=== PATIENT | female | born 1980 | race Caucasian/White ===

== ENCOUNTER 2020-11-29 13:56 | Emergency (ER) | payer MEDICAID, SELFPAY ==
[2020-11-29 14:16] VITALS: BP 207/130; PULSE 93; RESP 18; TEMP 36.1; O2SAT 97; BMI 37.2
--- NOTE | 2020-11-29 14:50 | ECG_ITS ---
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: : 1980 Requested By: Roger Balbuena Order Number: [id number] Amadeo MD: CARLOS LEVY Measurements Intervals [place] Rate: 88 P: 4 WI: 164 QRS: -7 QRSD: 102 T: 102 QT: 373 QTc: 454 Interpretive Statements SINUS RHYTHM INCOMPLETE RIGHT BUNDLE BRANCH BLOCK [90+ ms QRS DURATION, TERMINAL R IN V1/V2, 40+ ms S IN I/aVL/V4/V5/V6] ST DEVIATION AND MODERATE T-WAVE ABNORMALITY, CONSIDER LATERAL ISCHEMIA [-0.1+ mV T WAVE IN I/aVL/V5/V6] Compared to ECG 04/16/2017 00:15:57 T-wave abnormality now present Possible ischemia now present Sinus tachycardia no longer present Short WI interval no longer present Electronically Signed On 11-29-2020 19:23:57 CDT by CARLOS LEVY [email or web address]
--- NOTE | 2020-11-29 14:51 | XR_ITS ---
WS: [id number] AP and lateral chest, 11/29/2020 Clinical Data: lung pain Comparison: Portable chest, 04/16/2017. Findings: No nodules, masses or effusions are seen. There is a patchy opacity over the surface of the right diaphragm. This may represent atelectasis, effusion and/or pneumonia. Heart is slightly enlarg ed. The left lung is clear. No pneumothorax is seen. The pulmonary vascularity is not remarkable. XR/XR chest 2V* [id number] Impression: 1. Patchy atelectasis and/or pneumonia over surface of the right diaphragm. 2. Cardiomegaly.
[2020-11-29 14:52] VITALS: BP 159/92; PULSE 91; RESP 22; O2SAT 95
--- NOTE | 2020-11-29 14:55 | ED_ITS ---
HPI - SOB/Dyspnea General: Chief Complaint: Shortness of Breath/Dyspnea Stated Complaint: sob Time Seen by Provider: 11/29/20 14:43 History of Present Illness: HPI Narrative: 40-year-old female presents with shortness of breath. Patient reports that shortness of breath started yesterday morning. She feels like she has concrete in her lungs she complains of sharp pain with deep breath. She denies any cough, fever, chills, nausea, vomiting or diaphoresis. She has no chest pain outside of when she takes a deep breath. The pain is on the right greater than the left. Associated symptoms: Deny abdominal pain, fever(s), nausea, palpitations or vomiting Review of Systems Const: Denies: fever(s) or chills Eyes: Denies: change in vision ENMT: Denies: throat pain Card: Denies: palpitations, irregular heart rhythm or edema Resp: Reports: dyspnea; Denies: productive cough, non-productive cough or wheezing GI: Denies: abdominal pain, nausea or vomiting : Denies: flank pain Musc: Denies: neck pain Skin/Breast: Denies: rash Neuro: Denies: headache(s) [facility] Female Reproductive History: Date of last menstrual period: 11/23/20 Physical Exam Const: COMMON NORMALS: no acute distress and patient oriented x3 GENERAL APPEARANCE: not in distress HENMT: COMMON NORMALS: normocephalic HEAD & SCALP: normocephalic Resp: COMMON NORMALS: normal respiratory effort and clear to auscultation bilaterally AUSCULTATION: clear to auscultation bilaterally and no wheezes Cardio: COMMON NORMALS: regular rate, regular rhythm and Peripheral pulses 2+ throughout RATE: regular rate RHYTHM: regular rhythm PERIPHERAL PULSES: Peripheral pulses 2+ throughout GI: COMMON NORMALS: non-tender INSPECTION: Yes normal to inspection and Yes central obesity PALPATION: Yes Soft to palpation and No Tenderness to palpation present (GI) : COMMON NORMALS: Yes no CVA tenderness BLADDER/KIDNEY EXAM: Yes no CVA tenderness Back/Pelvis: COMMON NORMALS: no CVA tenderness Extremity: COMMON NORMALS: normal to inspection and full ROM Neuro: COMMON NORMALS: patient oriented x3 and no focal motor deficits Psych: COMMON NORMALS: mental status grossly normal and speech normal SPEECH: Yes normal speech Skin: COMMON NORMALS: no rashes or lesions noted GENERAL SKIN EXAM: no rashes or lesions noted Course Vital Signs: Vital signs: Vital Signs Temperature 96.9 F L 11/29/20 14:16 Pulse Rate 90 11/29/20 15:42 Respiratory Rate 21 H 11/29/20 15:42 Blood Pressure 205/110 11/29/20 15:42 Pulse Oximetry 95 11/29/20 15:42 MDM - SOB/Dyspnea MDM Narrative: Medical decision making narrative: Patient with right lower lobe pneumonia. Patient with no PE on CTA. Patient will be prescribed azithromycin for atypical pneumonia. Patient stable and discharged home Lab Data: Attestation: I reviewed the patient's lab results. Labs: Lab Results 11/29/20 11/29/20 11/29/20 Range/Units 15:44 15:44 15:44 WBC 14.3 H (4.0-10.0) 10^3/ uL RBC 4.95 (4.1-5.3) 10^6/u L Hgb 14.0 (11.5-15.3) g/dL Hct 42.7 (37.0-47.0) % MCV 86.3 (81-99) fL MCH 28.3 (28.0-34.0) pg MCHC 32.8 (30.0-36.0) g/dL RDW 14.8 (12.1-15.1) % Plt Count 304 (130-400) 10^3/c mm MPV 9.2 (7.4-10.4) fL Neut % (Auto) 74.8 % Lymph % (Auto) 15.5 % [place] % (Auto) 7.0 % Eos % (Auto) 2.2 % Baso % (Auto) 0.2 % Neut # (Auto) 10.69 H (1.8-7.7) 10^3/u L Lymph # (Auto) 2.2 (0.8-4.8) 10^3/u L [place] # (Auto) 1.0 H (0.2-0.9) 10^3/u L Eos # (Auto) 0.3 (0.0-0.8) 10^3/u L Baso # (Auto) 0.0 (0.0-0.1) 10^3/u L Nucleated RBC % (a uto) 0 % Nucleated RBCs # 0.0 /100WBC D-Dimer (0-0.59) ug/mIFE U Sodium 137 (136-145) mmol/L Potassium 3.3 L (3.5-5.1) mmol/L Chloride 100 (98-107) mmol/L Carbon Dioxide 28 (22-29) mmol/L Anion Gap 12.3 (5-19) BUN 9 (6-20) mg/dL Creatinine 0.5 (0.5-0.9) mg/dL GFR Calculation 138.1 H (90-130) mL/min Glucose 90 (65-115) mg/dL Calculated Osmolal ity 282 L (285-295) mOsm/k g Calcium 8.5 (8.5-10.5) mg/dL Magnesium 2.0 (1.7-2.3) mg/dL Total Bilirubin 0.8 (0.15-1.2) mg/dL AST 18 (0-32) U/L ALT 24 (0-33) U/L Alkaline Phosphata se 92 (35-105) IU/L Troponin T Gen 5 n g/L 18 H (0-10) ng/L C-Reactive Protein 106.6 H (0.0-4.9) mg/L Total Protein 6.8 (6.6-8.7) g/dL Albumin 3.9 (3.5-5.2) g/dL Globulin 2.9 (1.3-4.6) g/dL 11/29/20 Range/Units 15:44 WBC (4.0-10.0) 10^3/ uL RBC (4.1-5.3) 10^6/u L Hgb (11.5-15.3) g/dL Hct (37.0-47.0) % MCV (81-99) fL MCH (28.0-34.0) pg MCHC (30.0-36.0) g/dL RDW (12.1-15.1) % Plt Count (130-400) 10^3/c mm MPV (7.4-10.4) fL Neut % (Auto) % Lymph % (Auto) % [place] % (Auto) % Eos % (Auto) % Baso % (Auto) % Neut # (Auto) (1.8-7.7) 10^3/u L Lymph # (Auto) (0.8-4.8) 10^3/u L [place] # (Auto) (0.2-0.9) 10^3/u L Eos # (Auto) (0.0-0.8) 10^3/u L Baso # (Auto) (0.0-0.1) 10^3/u L Nucleated RBC % (a uto) % Nucleated RBCs # /100WBC D-Dimer 2.65 H (0-0.59) ug/mIFE U Sodium (136-145) mmol/L Potassium (3.5-5.1) mmol/L Chloride (98-107) mmol/L Carbon Dioxide (22-29) mmol/L Anion Gap (5-19) BUN (6-20) mg/dL Creatinine (0.5-0.9) mg/dL GFR Calculation (90-130) mL/min Glucose (65-115) mg/dL Calculated Osmolal ity (285-295) mOsm/k g Calcium (8.5-10.5) mg/dL Magnesium (1.7-2.3) mg/dL Total Bilirubin (0.15-1.2) mg/dL AST (0-32) U/L ALT (0-33) U/L Alkaline Phosphata se (35-105) IU/L Troponin T Gen 5 n g/L (0-10) ng/L C-Reactive Protein (0.0-4.9) mg/L Total Protein (6.6-8.7) g/dL Albumin (3.5-5.2) g/dL Globulin (1.3-4.6) g/dL Imaging Data^: CXR: Attestation: I personally reviewed and interpreted this imaging study as follows: My impression: RLL pneumonia Radiologist's impression: Findings: No nodules, masses or effusions are seen. There is a patchy opacity over the surface of the right diaphragm. This may represent atelectasis, effusion and/or pneumonia. Heart is slightly enlarged. The left lung is clear. No pneumothorax is seen. The pulmonary vascularity is not remarkable. XR/XR chest 2V* [id number] Impression: 1. Patchy atelectasis and/or pneumonia over surface of the right diaphragm. 2. Cardiomegaly CTA Chest: Radiologist's impression: CT/CT angio chest PE protcl [id number] IMPRESSION: 1. No evidence for pulmonary embolus. 2. Mild aneurysmal dilatation of the ascending thoracic aorta. No dissection. 3. Discoid atelectasis and/or scarring in both lung bases. Superimposed mild pneumonia or aspiration in the right lower lobe is not excluded. 4. Small simple right pleural effusion Discharge Plan Discharge Prescriptions: No Action Aleve 220 mg Tablet 220 mg PO PRN RF: 0 ibuprofen 200 mg Tablet 200 mg PO PRN RF: 0 Coding Level of Care Code ED Software Engineer Mobile for Chg Fwd Exam Comprehensive
[2020-11-29 15:42] VITALS: BP 205/110; PULSE 90; RESP 21; O2SAT 95
[2020-11-29 15:54] LABS: Basophils % 0.2 %; Eosinophils # 0.3 10^3/uL (0.0-0.8); Eosinophils % 2.2 %; Hematocrit 42.7 % (37.0-47.0); Lymphocytes # 2.2 10^3/uL (0.8-4.8); Lymphocytes % 15.5 %; Mean Corpuscular HGB Conc 32.8 g/dL (30.0-36.0); Mean Corpuscular Hemoglobin 28.3 pg (28.0-34.0); Mean Corpuscular Volume 86.3 fL (81-99); Mean Platelet Volume 9.2 fL (7.4-10.4); Neutrophils # 10.69 10^3/uL (1.8-7.7); Neutrophils % 74.8 %; Nucleated Red Blood Cells % 0 %; Platelet Count 304 10^3/cmm (130-400); Red Blood Count 4.95 10^6/uL (4.1-5.3); Red Cell Distribution Width 14.8 % (12.1-15.1); White Blood Count 14.3 10^3/uL (4.0-10.0)
--- NOTE | 2020-11-29 16:03 | PC.PHAR ---
PT STATES SHE TAKES CARE OF HER OWN MEDICATIONS-PT STATES SHE ONLY TAKES OTC MEDS PRN-PT STATES SHE USE TO TAKE XANAX AND BP MEDS BUT HASNT TAKEN THEM FOR OVER 6 YEARS-EXT MED HISTORY DOESNT SHOW ANYTHING FILLED SINCE 09/05/20 FOR CLINDAMYCIN AND NAPROXEN-EXT MED HISTORY SHOWS A PROAIR INHALER FILLED ON 06/20/20 PT STATES SHE DOESNT HAVE IT ANY LONGER
[2020-11-29 16:17] LABS: Alanine Aminotransferase 24 U/L (0-33); Albumin Level 3.9 g/dL (3.5-5.2); Alkaline Phosphatase 92 IU/L (35-105); Anion Gap 12.3 (5-19); Aspartate Amino Transferase 18 U/L (0-32); Blood Urea Nitrogen 9 mg/dL (6-20); C Reactive Protein 106.6 mg/L (0.0-4.9); Calcium 8.5 mg/dL (8.5-10.5); Carbon Dioxide 28 mmol/L (22-29); Chloride 100 mmol/L (98-107); Globulin 2.9 g/dL (1.3-4.6); Glomerular Filtration Rate 138.1 mL/min (90-130); Glucose 90 mg/dL (65-115); Osmolality Calculated 282 mOsm/kg (285-295); Potassium 3.3 mmol/L (3.5-5.1); Sodium 137 mmol/L (136-145); Total Bilirubin 0.8 mg/dL (0.15-1.2); Total Protein 6.8 g/dL (6.6-8.7); Troponin T (5th) Once 18 ng/L (0-10)
[2020-11-29 16:20] LABS: D Dimer 2.65 ug/mIFEU (0-0.59)
--- NOTE | 2020-11-29 16:32 | CTR_ITS ---
PROCEDURE INFORMATION: Exam: CTA Chest With Contrast Exam date and time: 11/29/2020 4:42 PM Age: 40 years old Clinical indication: Shortness of breath; Patient HX: Back pain x yesterday, SOB; Additional info: SOB, elevated d dimer TECHNIQUE: Imaging protocol: Computed tomographic angiography of the chest with contrast. 3D rendering (Not supervised by radiologist): MIP and/or 3D reconstructed images were created by the technologist. Radiation optimization: All CT scans at this facility use at least one of these dose optimization techniques: automated exposure control; mA and/or kV adjustment per patient size (includes targeted exams where dose is matched to clinical indication); or iterative reconstruction. Contrast material: OMNI 350; Contrast volume: 95 ml; Contrast route: INTRAVENOUS (IV); COMPARISON: CR XR chest 2V* [id number] 11/29/2020 3:19 PM RADIATION DOSE METRICS: Total DLP (mGy-cm): 2672.29 FINDINGS: Pulmonary arteries: Normal. No pulmonary emboli. Aorta: Mild aneurysmal dilatation of the ascending thoracic aorta measuring 4.1 cm. No dissection. Lungs: Bandlike discoid atelectasis or scarring in both lung bases, right greater than left. Superimposed mild patchy ground-glass opacities in the right lower lobe. Pleural spaces: Small simple right pleural effusion. Heart: Unremarkable. No cardiomegaly. No pericardial effusion. Lymph nodes: Unremarkable. No enlarged lymph nodes. Gallbladder and bile ducts: Cholecystectomy. The bile ducts are normal. Bones/joints: Unremarkable. No acute fracture. Soft tissues: Unremarkable. CT/CT angio chest PE protcl [id number] IMPRESSION: 1. No evidence for pulmonary embolus. 2. Mild aneurysmal dilatation of the ascending thoracic aorta. No dissection. 3. Discoid atelectasis and/or scarring in both lung bases. Superimposed mild pneumonia or aspiration in the right lower lobe is not excluded. 4. Small simple right pleural effusion. Radiation Dose CTDIVOL = (mGy): DLP = 2672.29 (mGy-cm)
[2020-11-29] MEDS: iohexol 350 mg/mL 100 mL Btl IV (17:03)
[2020-11-29 17:28] VITALS: BP 219/129; PULSE 89; RESP 20; O2SAT 94
[2020-11-29] MEDS: ketorolac 30 mg/mL INJ IVP (17:34)
--- NOTE | 2020-11-29 17:35 | PC.NURSE ---
Pt was given ice water per doctor approval.
[2020-11-29] MEDS: HYDROcodone-acetaminophen 5-325 mg Tablet 1 TAB PO (17:51)
[2020-11-29] MEDS: ondansetron 2 mg/ML SDV 2 mL 4 MG IVP (17:51)
[2020-11-29 17:55] VITALS: BP 211/119; PULSE 96; RESP 18; O2SAT 98
[2020-11-29] MEDS: fentaNYL 50 mcg/mL INJ 2mL XX (18:09)
[2020-11-29 18:30] VITALS: BP 189/101; PULSE 92; RESP 20; O2SAT 93
== END 2020-11-29 18:35 | disposition home or self-care (01) ==
PROVIDERS: Emergency Provider Student in an Organized Health Care Education/Training Program; PCP Family Medicine
DX: R06.02 Shortness of breath (principal)
CPT/HCPCS: 71046; 71275; 80053; 83735; 84484; 85025; 85378; 86140; 93005; 96372; 96374; 96375; 99284; J1885; J2405; J3010; Q9967

== ENCOUNTER 2022-09-02 19:15 | Emergency (ER) | payer MEDICAID, SELFPAY ==
[2022-09-02 19:35] VITALS: BP 227/114; PULSE 84; RESP 18; TEMP 36.7; O2SAT 98
[2022-09-02] MEDS: tetracaine 0.5% Op Soln 4 mL Btl 1 DROP EYE-LEFT (21:04)
--- NOTE | 2022-09-02 21:24 | CTR_ITS ---
PROCEDURE INFORMATION: Exam: CT Orbits With Contrast Exam date and time: 09/02/2022 10:02 PM Age: 41 years old Clinical indication: Patient HX: Swelling to left orbit with pain. No known injury. ; Additional info: Acute left orbital swelling, conjunctival swelling, per Dr ortega with optho TECHNIQUE: Imaging protocol: Computed tomography of the orbits with contrast. Radiation optimization: All CT scans at this facility use at least one of these dose optimization techniques: automated exposure control; mA and/or kV adjustment per patient size (includes targeted exams where dose is matched to clinical indication); or iterative reconstruction. Contrast material: OMNI 350; Contrast volume: 100 ml; Contrast route: INTRAVENOUS (IV); COMPARISON: No relevant prior studies available. RADIATION DOSE METRICS: Total DLP (mGy-cm): 325.58 FINDINGS: Paranasal sinuses: Near complete opacification of the partially imaged left maxillary sinus. Minimal mucosal thickening of the partially imaged right maxillary sinus, sphenoid sinuses, and ethmoid air cells. The right frontal sinus is aplastic. The left frontal sinus is hypoplastic and unopacified. Orbital cavities: Mild left preseptal periorbital soft tissue swelling. There appears to be a low attenuating crescent with enhancing rim at the anterior margin of the globe (series 4, image 15 and series 8 image 25). Hyperenhancement of a mildly enlarged left lacrimal gland. The right orbit and right facial soft tissues are unremarkable in appearance. Bones/joints: No acute fracture. Soft tissues: See orbital cavities findings. CT/CT orbit BI w con [id number] IMPRESSION: 1. Mild left periorbital soft tissue swelling compatible with preseptal cellulitis. There appears to be a low attenuating crescent with enhancing rim at the anterior margin of the globe suggestive of chemosis vs. small abscess. Direct visualization is suggested for further evaluation. 2. Hyperenhancement of a mildly enlarged left lacrimal gland suggestive of dacryoadenitis, possibly secondary to the aforementioned findings. Correlate and follow-up as clinically indicated. 3. Near complete opacification of the left maxillary sinus.
[2022-09-02 21:35] LABS: Basophils # 0.1 10^3/uL (0.0-0.1); Basophils % 0.5 %; Eosinophils # 0.6 10^3/uL (0.0-0.8); Eosinophils % 4.3 %; Hematocrit 43.5 % (37.0-47.0); Hemoglobin 13.6 g/dL (11.5-15.3); Lymphocytes # 2.8 10^3/uL (0.8-4.8); Lymphocytes % 20.9 %; Mean Corpuscular HGB Conc 31.3 g/dL (30.0-36.0); Mean Corpuscular Volume 86.5 fl (81-99); Monocytes # 0.7 10^3/uL (0.2-0.9); Monocytes % 4.9 %; Neutrophils # 9.11 10^3/uL (1.8-7.7); Neutrophils % 69.1 %; Nucleated Red Blood Cells % 0 %; Platelet Count 370 10^3/cmm (130-400); Red Blood Count 5.03 10^6/uL (4.1-5.3); Red Cell Distribution Width 14.8 % (12.1-15.1); White Blood Count 13.2 10^3/uL (4.0-10.0)
[2022-09-02] MEDS: iohexol 350 mg/mL 500 mL Btl (per mL) IV (22:04)
[2022-09-02 22:09] LABS: Alanine Aminotransferase 21 U/L (0-33); Albumin Level 4.1 g/dL (3.5-5.2); Alkaline Phosphatase 95 U/L (35-105); Anion Gap 13.5 (5-19); Aspartate Amino Transferase 20 U/L (0-32); Blood Urea Nitrogen 12 mg/dL (6-20); Calcium 8.7 mg/dL (8.5-10.5); Carbon Dioxide 28 mmol/L (22-29); Chloride 100 mmol/L (98-107); Globulin 3.1 g/dL (1.3-4.6); Glomerular Filtration Rate 111.3 mL/min (90-130); Glucose 95 mg/dL (65-115); Osmolality Calculated 286 mOsm/kg (285-295); Potassium 3.5 mmol/L (3.5-5.1); Sodium 138 mmol/L (136-145); Total Bilirubin 0.5 mg/dL (0.15-1.2); Total Protein 7.2 g/dL (6.6-8.7)
[2022-09-02] MEDS: fentaNYL 50 mcg/mL INJ 2mL 25 MCG IVP (22:44)
[2022-09-02 22:51] VITALS: BP 233/120; PULSE 84; RESP 20; O2SAT 95
[2022-09-02 23:00] VITALS: BP 237/127; PULSE 79; O2SAT 95
[2022-09-02] MEDS: cefTRIAXone 1,000 MG in sodium chloride 0.9% (plus) 50 ML 100 MG IV (23:33)
[2022-09-03] MEDS: HYDROcodone-acetaminophen 5-325 mg Tablet 1 TAB PO (00:21)
[2022-09-03] MEDS: metoprolol succinate ER (24 HR) 50 mg Tablet PO (00:31)
--- NOTE | 2022-09-03 00:51 | PC.NURSE ---
Pt's blood pressure remained in the 200's over 120's after being given po Metoprolol. Pt stated her blood pressure is chronically high and she does not do pain well. Per MD she could go home.
--- NOTE | 2022-09-03 01:33 | ED_ITS ---
HPI - Eye Problem General: Chief complaint: Eye Problems Stated complaint: Left eye pain Time Seen by Provider: 09/02/22 19:33 Source: patient Mode of arrival: ambulatory Limitations: no limitations History of Present Illness: Patient presents to the emergency department today for evaluation treatment of left eye pain and swelling. Patient states that early this morning she felt like she had something in her eye and admits to rubbing it. She has continued to rub it and it has continued to swell and have increased pain. Patient originally went to urgent care where they diagnosed her with a bacterial conjunctivitis and was prescribed antibiotic eyedrops. However, patient states she got significantly worse with inability to open her left eye, severe worsening of pain, and significant tearing and presents here to the ER. Review of Systems General: Reports: 10 or more systems reviewed and unremarkable except in HPI and below Eyes: Reports: blurry vision, photophobia, eye discomfort, eye discharge, eye redness, increased production of tears and other (Swelling) [facility] Female Reproductive History: Date of last menstrual period: 11/23/20 Physical Exam Const: COMMON NORMALS: patient oriented x3 and alert; apparent distress HENMT: COMMON NORMALS: normocephalic, atraumatic, hearing grossly normal bilaterally and moist oral mucous membranes HEAD & SCALP: normocephalic and atraumatic Eye: OTHER: Patient's right eye is otherwise unremarkable. Patient's left eye is significantly swollen to the upper lid and upper orbit. There is some mild erythema present. Upper eyelid overlies the lower lid and with separation reveals significant swelling of the conjunctive a with only a small amount of the cornea visible. Patient is extremely photophobic on her examination. Patient is actively tearing. Neck/C-Spine: COMMON NORMALS: no JVD Lymph: LYMPHATIC: no lymphadenopathy noted Resp: COMMON NORMALS: normal respiratory effort, No retractions and No use of accessory muscles Cardio: COMMON NORMALS: no JVD, regular rate and regular rhythm RATE: regular rate RHYTHM: regular rhythm GI: COMMON NORMALS: Normal to inspection, nondistended, normoactive bowel sounds present : COMMON NORMALS: Yes no CVA tenderness BLADDER/KIDNEY EXAM: Yes no CVA tenderness Back/Pelvis: COMMON NORMALS: no CVA tenderness and thoraco-lumbar ROM normal Extremity: COMMON NORMALS: normal to inspection, full ROM and capillary refill normal Neuro: COMMON NORMALS: patient oriented x3 SENSORIUM/ORIENTATION: Yes alert Psych: COMMON NORMALS: mental status grossly normal, cooperative, normal affect and activity/motor behavior normal Course Vital Signs: Vital signs: Vital Signs Temperature 98.0 F 09/02/22 19:35 Pulse Rate 79 09/02/22 23:00 Respiratory Rate 20 H 09/02/22 22:51 Blood Pressure 237/127 09/02/22 23:00 Pulse Oximetry 95 09/02/22 23:00 Oxygen Delivery Me thod 09/02/22 23:00 MDM - Eye Problem Medical Decision Making Patient presents to the ER today with significant left orbital swelling, redness, and conjunctival swelling. Originally, Navarro lamp was going to be attempted to look for corneal abrasion however, the significant swelling of the patient's eye and globe prevented a full evaluation. I did call and speak with ophthalmology-Dr. Finley who indicated to emergent conditions for which we should evaluate today. He wanted to know if the patient was at risk for gonorrhea of the eye and, wanted to CT scan performed to look for orbital cellulitis. When discussing with patient, she admits it is possible she could have come into contact with bodily fluids during sex. We obtained a swab of the mucous membranes of the left eye and, after speaking the lab, obtained a miscellaneous lab 480 which is a send out for GC. We went ahead and initiated treatment for suspicion of a positive finding. Patient has an anaphylaxis allergy to penicillins however, she indicates she has tolerated both Omnicef and Rocephin in the past without difficulty. Patient received 1 g of Rocephin here in the ER. Josy hernandez called and spoke with me specifically regarding the patient's findings on her CT examination. He indicates that it does appear to be a preseptal cellulitis of the eye but there is noted to be significant swelling of the conjunctive a and acute left-sided sinusitis. Up-to-date indicated that the recommended second line for penicillin allergic patients with preseptal cellulitis is Omnicef. Given patient received Rocephin today, can start her Omnicef for [place] in the morning. Dr. Finley also indicated he wanted the patient to come in on a walk-in basis first thing in the morning to be seen and evaluated in his clinic. Patient was treated for pain here in the emergency department and can follow-up with ophthalmology for continued management of her condition first thing in the morning or, should return for any acute worsening. Patient had elevated blood pressure readings consistently during her time here. I did discuss with patient these findings and she does admit she has elevated blood pressure readings for which she does not treat. Patient is in quite a bit of pain here which could account for an acute elevation however, she has significantly elevated blood pressures without ability to determine whether or not headache or change in vision is related to her current condition or her blood pressure readings. After discussing with Dr. Townsend, he recommended starting metoprolol and having her follow-up with her primary care doctor for further management. Differential Diagnosis Likely corneal abrasion, conjunctivitis, acute iritis, hyphema, periorbital cellulitis, subconjunctival hemorrhage and corneal ulcer Lab Data 09/02/22:23 09/02/22 21: Radiology Impressions Orbit CT 09/02/22 21:24 IMPRESSION: 1. Mild left periorbital soft tissue swelling compatible with preseptal cellulitis. There appears to be a low attenuating crescent with enhancing rim at the anterior margin of the globe suggestive of chemosis vs. small abscess. Direct visualization is suggested for further evaluation. 2. Hyperenhancement of a mildly enlarged left lacrimal gland suggestive of dacryoadenitis, possibly secondary to the aforementioned findings. Correlate and follow-up as clinically indicated. 3. Near complete opacification of the left maxillary sinus. ADDENDUM: 09/02/22 [id number] The findings were verbally communicated via telephone conference with Lety Anderson PA-C at 11:03 PM PUBLIC RELATIONS DIRECTOR on 09/02/2022. The findings were acknowledged and understood. Laboratory Results WBC 13.2 10^3/uL (4.0-10.0) H 09/02/22: RBC 5.03 10^6/uL (4.1-5.3) 09/02/22: Hgb 13.6 g/dL (11.5-15.3) 09/02/22: Hct 43.5 % (37.0-47.0) 09/02/22: MCV 86.5 fl (81-99) 09/02/22: MCH 27.0 pg (28.0-34.0) L 09/02/22: MCHC 31.3 g/dL (30.0-36.0) 09/02/22 21: RDW 14.8 % (12.1-15.1) 09/02/22: Plt Count 370 10^3/cmm (130-400) 09/02/22 21: MPV 9.0 fL (7.4-10.4) 09/02/22 21: Neut % (Auto) 69.1 % 09/02/22 21: Lymph % (Auto) 20.9 % 09/02/22 21: [place] % (Auto) 4.9 % 09/02/22 21: Eos % (Auto) 4.3 % 09/02/22: Baso % (Auto) 0.5 % 09/02/22: Neut # (Auto) 9.11 10^3/uL (1.8-7.7) H 09/02/22: Lymph # (Auto) 2.8 10^3/uL (0.8-4.8) 09/02/22: [place] # (Auto) 0.7 10^3/uL (0.2-0.9) 09/02/22 21: Eos # (Auto) 0.6 10^3/uL (0.0-0.8) 09/02/22: Baso # (Auto) 0.1 10^3/uL (0.0-0.1) 09/02/22: Nucleated RBC % (auto) 0 % 09/02/22: Nucleated RBCs # 0.0 /100WBC 09/02/22 21: Sodium 138 mmol/L (136-145) 09/02/22 21: Potassium 3.5 mmol/L (3.5-5.1) 09/02/22: Chloride 100 mmol/L (98-107) 09/02/22: Carbon Dioxide 28 mmol/L (22-29) 09/02/22 21: Anion Gap 13.5 (5-19) 09/02/22: BUN 12 mg/dL (6-20) 09/02/22: Creatinine 0.6 mg/dL (0.5-0.9) 09/02/22 21: GFR Calculation 111.3 mL/min (90-130) 09/02/22 21: Glucose 95 mg/dL (65-115) 09/02/22 21: Calculated Osmolality 286 mOsm/kg (285-295) 09/02/22 21: Calcium 8.7 mg/dL (8.5-10.5) 09/02/22 21: Total Bilirubin 0.5 mg/dL (0.15-1.2) 09/02/22 21: AST 20 U/L (0-32) 09/02/22 21: ALT 21 U/L (0-33) 09/02/22 21: Alkaline Phosphatase 95 U/L (35-105) 09/02/22 21: Total Protein 7.2 g/dL (6.6-8.7) 09/02/22 21: Albumin 4.1 g/dL (3.5-5.2) 09/02/22 21: Globulin 3.1 g/dL (1.3-4.6) 09/02/22 21: Discharge Plan Discharge Patient Disposition: Home Clinical Impression: Preseptal cellulitis of left eye, Sinusitis, Chemosis of left conjunctiva Condition: Stable Prescriptions: New cefdinir 300 mg capsule 300 mg PO BID 10 Days Qty: 20 0RF metoprolol succinate 50 mg tablet extended release 24 hr 50 mg PO DAILY Qty: 14 0RF No Action polymyxin B sulf-trimethoprim 10,000 unit- 1 mg/mL drops 1 drp ophthalmic (eye) Q3H 7 Days Qty: 10 0RF Rx Instructions: while awake; do not exceed 6 doses in 24 hours Aleve 220 mg Tablet 220 mg PO PRN ibuprofen 200 mg Tablet 200 mg PO PRN Discharge Orders: Discharge ED (Routine); Ordered 09/02/22 Ordered By: Lety Anderson Referrals: Raphael Acevedo DO [Primary Care Provider] - Discharge Diet: Usual diet Discharge Activity: Increase activity as tolerated Patient Instructions: Periorbital Cellulitis (ED) Activity Restrictions/Additional Instructions: I was able to speak with Dr. Finley regarding the acute swelling and pain you have been having in your eye. He did have a couple different concerns for emergent conditions including a potential gonorrhea infection or, and orbital cellulitis. He requested we obtain a swab to check for the gonorrhea and, recommended a CT examination to further evaluate the areas of swelling and potential pockets of infection around your eye. Luckily, the CT examination revealed only a preseptal cellulitis which is not as emergent or concerning. Given the possibility of a gonorrhea infection we did go ahead and initiate the treatment today while we confirm with a swab being sent for culture over the next couple of days. I have sent continued antibiotic therapy to the pharmacy to be picked up and continued first thing in the morning however, Dr. Finley would like you to present to his clinic as a walk-in first thing in the morning to be seen and evaluated. Coding Level of Care Code ED Pneumatic Jacketer for Lai Pina
[2022-09-30 15:33] LABS: Miscellaneous Test SEE COMMENTS
== END 2022-09-03 00:49 | disposition home or self-care (01) ==
PROVIDERS: Emergency Provider Physician Assistant; PCP Family Medicine
DX: L03.213 Periorbital cellulitis (principal); J32.9 Chronic sinusitis, unspecified; H11.422 Conjunctival edema, left eye
CPT/HCPCS: 70481; 80053; 85025; 87081; 96365; 96375; 99285; J0696; J3010; Q9967

== ENCOUNTER 2023-09-25 10:21 | Emergency (ER) | payer MEDICAID, SELFPAY ==
[2023-09-25] VITALS (8 sets, daily range): BP systolic 120–240; BP diastolic 70–147; PULSE 83–87; RESP 18–20; TEMP 36.8; O2SAT 94–98; BMI 35.4
--- NOTE | 2023-09-25 11:00 | XR_ITS ---
WS: [id number] Portable AP semiupright chest, 09/25/2023 Clinical Data: dyspnea/cough Comparison: Two-view chest, 11/29/2020 Findings: No nodules, masses or effusions are seen. The heart is enlarged. The pulmonary vascularity is not increased. No pneumonia or pneumothorax is seen. Impression: Cardiomegaly
[2023-09-25 11:01] LABS: Basophils # 0.1 10^3/uL (0.0-0.1); Basophils % 0.4 %; Eosinophils # 0.5 10^3/uL (0.0-0.8); Hematocrit 40.9 % (36-47); Lymphocytes # 2.2 10^3/uL (0.8-4.8); Lymphocytes % 14.3 %; Mean Corpuscular HGB Conc 31.1 g/dL (30-55); Mean Corpuscular Hemoglobin 25.9 pg (27-33); Mean Corpuscular Volume 83.5 fl (85-98); Mean Platelet Volume 9.1 fL (7.4-10.4); Monocytes # 0.6 10^3/uL (0.2-0.9); Neutrophils # 11.94 10^3/uL (1.8-7.7); Neutrophils % 77.8 %; Nucleated Red Blood Cells % 0 %; Platelet Count 439 10^3/cmm (157-399); Red Cell Distribution Width 16.4 % (12.1-15.1); White Blood Count 15.33 10^3/uL (3.29-11.43)
--- NOTE | 2023-09-25 11:02 | CT_ITS ---
WS: [id number] CT ABDOMEN AND PELVIS WITH CONTRAST HISTORY: abd pain TECHNIQUE: Imaging performed of the abdomen and pelvis with IV contrast. Single phase imaging of the abdomen. Coronal and sagittal reformats are submitted. All CT scans at [facility] use at am[facility] st one of these dose optimization techniques: automated exposure control; mA and/or kV adjustment per patient size (includes targeted exams where dose is matched to clinical indication); or iterative re construction. IV CONTRAST: Omnipaque 350; 100 mL IV. Oral contrast: No DLP: 1112.78 mGy.cm COMPARISON: 04/16/2017 Lower thorax: Lung bases are clear. Heart is normal size. No hiatal hernia. Liver/biliary system: Liver is top normal size. No bile duct dilatation. Gallbladder: Prior cholecystectomy. Pancreas: Normal size pancreas and pancreatic duct. No adjacent inflammation. Spleen: Normal size spleen. No mass or infarct. Adrenal glands: Normal. Right kidney: Normal size with mild cortical thinning and lobulated renal cortex. There is no obstruc tion. Left kidney: Mild focal scarring and thinning of the cortex in the upper pole. No obstruction or mass . Aorta: Mild atherosclerosis with no aneurysm. Lymphadenopathy: None. Free fluid: None. GI tract: Unremarkable. Abdominal wall: Significant asymmetric appearance of the abdominal wall musculature. Acute intramuscu lar hematoma involving the LEFT rectus muscle. There is an area of active bleeding continuing in the central LEFT rectus muscle hematoma. This is probably a branch of the inferior epigastric artery. Hem atoma extends over a length of at least 17 cm with a diameter of 5.1 cm. Pelvis: No free fluid or adenopathy within the pelvis. Bones: Unremarkable. IMPRESSION: 1. Large LEFT rectus muscle acute hematoma with active bleeding in a small artery. This looks to be a branch artery of the LEFT inferior epigastric artery. Hematoma measures 17 cm in length by 5.1 cm i n diameter. Hematoma is contained within the abdominal wall. 2. No intraperitoneal or retroperitoneal hematoma. 3. Prior cholecystectomy. Notified Roland Robertson DO at 09/25/2023 12:36 PM.
[2023-09-25 11:14] LABS: Alanine Aminotransferase 27 U/L (0-33); Albumin Level 4.2 g/dL (3.5-5.2); Alkaline Phosphatase 104 U/L (35-105); Anion Gap 15.8 (5-19); Aspartate Amino Transferase 25 U/L (0-32); Blood Urea Nitrogen 11 mg/dL (6-20); Calcium 8.9 mg/dL (8.5-10.5); Carbon Dioxide 27 mmol/L (22-29); Chloride 101 mmol/L (98-107); Creatinine Clr Calc Pharmacy 133.2595; Globulin 3.4 g/dL (1.3-4.6); Glomerular Filtration Rate 110.7 mL/min (90-130); Glucose 107 mg/dL (65-115); Lipase 20 U/L (13-60); Osmolality Calculated 290 mOsm/kg (285-295); Potassium 3.8 mmol/L (3.5-5.1); Sodium 140 mmol/L (136-145); Total Bilirubin 0.6 mg/dL (0.15-1.2); Total Protein 7.6 g/dL (6.6-8.7)
[2023-09-25 11:19] LABS: HCG, Serum Qual Negative (Negative)
--- NOTE | 2023-09-25 11:33 | ED_ITS ---
HPI - Abdominal Pain 2 General: Chief Complaint: Abdominal Pain Stated Complaint: abd pain Time Seen by Provider: 09/25/23 10:42 Source: patient Mode of arrival: ambulatory History of Present Illness: 42-year-old female presents emergency ro om with abdominal pain. Began last night after she had a coughing fit and felt a tearing sensation just to the left of her midline supraumbilical. She had another episode this morning where she coughed quite a bit more felt that tear more than she is in more significant pain. She has not had a productive cough she has not had any other injury no vomiting or diarrhea although she feels quite nauseous no dysuria urgency or frequency or hematuria no hematochezia or melena. MD elicited complaint: abdominal pain Onset (ago): hour(s) Pain Consistency: constant Location: Periumbilical (Left supraumbilical) Severity: moderate Quality: sharp Radiation: none Exacerbating factors: nothing Relieving factors: nothing Associated Symptoms: Denies anorexia, belching, bloating, change in bowel habits, change in stool character, chills, coffee ground emesis, constipation, GI cramping, diarrhea, dyspepsia, dysuria, excessive flatus, fever(s), heartburn, hematochezia, hematuria, hematemesis, fecal incontinence, loose stools, melena, nausea, poor appetite, syncope and vomiting Review of Systems 2 Const: Denies: fever(s) or chills Card: Denies: chest pain or syncope Resp: Denies: dyspnea GI: Reports: abdominal pain; Denies: nausea, vomiting, hematemesis, coffee ground emesis, heartburn, diarrhea, constipation, bloating, GI cramping, belching, excessive flatus, fecal incontinence, change in bowel habits, change in stool character, hematochezia or melena : Denies: dysuria, urinary frequency, urinary urgency or hematuria Musc: Denies: neck pain or back pain Skin/Breast: Denies: rash Physical Exam 2 Const: GENERAL APPEARANCE: cooperative and comfortable O RIENTATION/CONSCIOUSNESS: Yes awake, Yes oriented to person, Yes oriented to place and Yes oriented to time HENMT: COMMON NORMALS: normocephalic, atraumatic and hearing grossly normal bilaterally HEAD & SCALP: normocephalic and atraumatic Resp: COMMON NORMALS: normal respiratory effort, No retractions, No use of accessory muscles and clear to auscultation bilaterally AUSCULTATION: clear to auscultation bilaterally Cardio: COMMON NORMALS: regular rate, regular rhythm and No murmurs present (Cardio) RATE: regular rate RHYTHM: regular rhythm GI: COMMON NORMALS: Soft to palpation and No hepatosplenomegaly present A USCULTATION: Yes normoactive bowel sounds PALPATION: Yes Soft to palpation, No Tenderness to palpation present (GI), No Guarding due to palpation present (GI) and Yes No hepatosplenomegaly present OTHER: Emanation her abdomen is benign with exception of a specific area left of the midline supraumbilical no skin breakdown no ulceration no rash. She is exquisitely tender with mild touch. But with adjacent areas there is no significant discomfort with significantly more aggressive palpation. No rebound or guarding. : COMMON NORMALS: Yes no CVA tenderness BLADDER/KIDNEY EXAM: Yes no CVA tenderness Back/Pelvis: COMMON NORMALS: no CVA tenderness Extremity: COMMON NORMALS: normal to inspection, capillary refill normal, no clubbing, cyanosis or edema, no calf tenderness and no pedal edema Neuro: SENSORIUM/ORIENTATION: Yes oriented to person, Yes oriented to place and Yes oriented to time Skin: COMMON NORMALS: no rashes or lesions noted GENERAL SKIN EXAM: no rashes or lesions noted Course 2 Vital Signs: Vital signs: Vital Signs Temperature 98.3 F 09/25/23 10:28 Pulse Rate 84 09/25/23 13:33 Respiratory Rate 20 H 09/25/23 13:49 Blood Pressure 120/70 09/25/23 15:02 Pulse Oximetry 96 09/25/23 15:02 Oxygen Delivery Me thod Room Air 09/25/23 10:28 MDM - Abdominal Pain Medical Decision Making Abdominal wall hematoma on CT. There is a little blushes if it is still bleeding. Reviewed with Dr. Paez. Also discussed Dr. South on-call for surgery who recommends TXA times two 1 hour apart. Blood pressure was elevated while she was here this history was hydralazine and had good response. Will discharge patient home. Have her follow-up for repeat hemoglobin tomorrow and follow-up with her doctor to reexamine. Return if has worsening pain pain medications given Medical Records I reviewed the patient's medical records. Lab Data I reviewed the patient's lab results. 09/25/23 10:45 09/25/23 10:45 Labs/Radiology: Laboratory Results WBC 15.33 10^3/uL (3.29-11.43) H 09/25/23 10:45 RBC 4.90 10^6/uL (3.85-5.65) 09/25/23 10:45 Hgb 12.70 g/dL (11.27-16.99) 09/25/23 10:45 Hct 40.9 % (36-47) 09/25/23 10:45 MCV 83.5 fl (85-98) L 09/25/23 10:45 MCH 25.9 pg (27-33) L 09/25/23 10:45 MCHC 31.1 g/dL (30-55) 09/25/23 10:45 RDW 16.4 % (12.1-15.1) H 09/25/23 10:45 Plt Count 439 10^3/cmm (157-399) H 09/25/23 10:45 MPV 9.1 fL (7.4-10.4) 09/25/23 10:45 Neut % (Auto) 77.8 % 09/25/23 10:45 Lymph % (Auto) 14.3 % 09/25/23 10:45 [place] % (Auto) 4.0 % 09/25/23 10:45 Eos % (Auto) 3.0 % 09/25/23 10:45 Baso % (Auto) 0.4 % 09/25/23 10:45 Neut # (Auto) 11.94 10^3/uL (1.8-7.7) H 09/25/23 10:45 Lymph # (Auto) 2.2 10^3/uL (0.8-4.8) 09/25/23 10:45 [place] # (Auto) 0.6 10^3/uL (0.2-0.9) 09/25/23 10:45 Eos # (Auto) 0.5 10^3/uL (0.0-0.8) 09/25/23 10:45 Baso # (Auto) 0.1 10^3/uL (0.0-0.1) 09/25/23 10:45 Nucleated RBC % (auto) 0 % 09/25/23 10:45 Nucleated RBCs # 0.0 /100WBC 09/25/23 10:45 Sodium 140 mmol/L (136-145) 09/25/23 10:45 Potassium 3.8 mmol/L (3.5-5.1) 09/25/23 10:45 Chloride 101 mmol/L (98-107) 09/25/23 10:45 Carbon Dioxide 27 mmol/L (22-29) 09/25/23 10:45 Anion Gap 15.8 (5-19) 09/25/23 10:45 BUN 11 mg/dL (6-20) 09/25/23 10:45 Creatinine 0.6 mg/dL (0.5-0.9) 09/25/23 10:45 GFR Calculation 110.7 mL/min (90-130) 09/25/23 10:45 Glucose 107 mg/dL (65-115) 09/25/23 10:45 Calculated Osmolality 290 mOsm/kg (285-295) 09/25/23 10:45 Calcium 8.9 mg/dL (8.5-10.5) 09/25/23 10:45 Total Bilirubin 0.6 mg/dL (0.15-1.2) 09/25/23 10:45 AST 25 U/L (0-32) 09/25/23 10:45 ALT 27 U/L (0-33) 09/25/23 10:45 Alkaline Phosphatase 104 U/L (35-105) 09/25/23 10:45 Total Protein 7.6 g/dL (6.6-8.7) 09/25/23 10:45 Albumin 4.2 g/dL (3.5-5.2) 09/25/23 10:45 Globulin 3.4 g/dL (1.3-4.6) 09/25/23 10:45 Lipase 20 U/L (13-60) 09/25/23 10:45 HCG, Qual Negative (Negative) 09/25/23 10:45 All radiology interpretation(s) finalized by discharge Discharge Plan Discharge Patient Disposition: Home Clinical Impression: Hematoma of abdominal wall Condition: Stable Prescriptions: New hydrocodone-acetaminophen 5-325 mg tablet 1 tab PO Q6H PRN (Reason: pain) Qty: 15 0RF promethazine 25 mg tablet 25 mg PO Q6H PRN (Reason: nausea and vomiting) Qty: 20 0RF No Action polymyxin B sulf-trimethoprim 10,000 unit- 1 mg/mL drops 1 drp ophthalmic (eye) Q3H 7 Days Qty: 10 0RF Rx Instructions: while awake; do not exceed 6 doses in 24 hours naproxen sodium [Aleve] 220 mg Tablet 220 mg PO DAILY PRN (Reason: Pain) albuterol sulfate 90 mcg/actuation Hfa Aerosol Inhaler 2 puff INHALATION Q6H PRN (Reason: Shortness Of Breath Or Wheezing) Discharge Orders: Discharge ED (Routine); Ordered 09/25/23 Ordered By: Roland Robertson Referrals: Raphael Acevedo DO [Primary Care Provider] - Discharge Diet: As Directed Discharge Activity: Limit activity as instructed Patient Instructions: Opioid Safety, Pain Management Activity Restrictions/Additional Instructions: Thank you for choosing [facility] for your healthcare needs today. Please realize this is an emergency room and that we are providing you with a medical screening exam and this may not be complete and all inclusive of all the testing and or work up that you may need to determine your ailment or severity of your illness. It is very important that you follow up as instructed or that you return to the Emergency Department should you have concerns or if your condition changes or worsens in any way. You were seen today for abdominal discomfort. You have an abdominal wall hematoma (torn muscle that was bleeding). These are usually self-limiting. Discussed the case with the on-call surgeon he does not recommend active intervention. Minimize activity. Use pain medication prescribed. You were given 2 doses of the medicine to stop the bleeding 1 hour apart in the emergency room. You should follow-up with your primary care doctor to recheck your hemoglobin with your primary care doctor within the next week. Coding Level of Care Code ED Cooler Supervisor for Lai Pina
[2023-09-25] MEDS: iohexol 350 mg/mL 500 mL Btl (per mL) IV (12:10)
[2023-09-25] MEDS: tranexamic acid 1,000 MG/100 ML PREMIX 600 MG IV ×2 (13:29→14:28)
[2023-09-25] MEDS: hyDRALAzine 20 mg/mL INJ 1 mL IVP (13:45)
[2023-09-25] MEDS: morphine 4 mg/mL SDV 1 mL IVP (13:49)
[2023-09-25] MEDS: ondansetron 2 mg/ML SDV 2 mL 4 MG IVP (13:50)
== END 2023-09-25 15:10 | disposition home or self-care (01) ==
PROVIDERS: Emergency Medicine; Emergency Provider Family Medicine; PCP Family Medicine
DX: S30.1XXA Contusion of abdominal wall, initial encounter (principal); X50.9XXA Other and unspecified overexertion or strenuous movements or postures, initial encounter
CPT/HCPCS: 36415; 71045; 74177; 80053; 83690; 84703; 85025; 96365; 96366; 96375; 99285; J0360; J2270; J2405; Q9967

== ENCOUNTER 2024-07-29 01:56 | Emergency (ER) | payer MEDICAID, SELFPAY ==
--- NOTE | 2024-07-29 02:05 | XRR_ITS ---
PROCEDURE INFORMATION: Exam: XR Chest Exam date and time: 07/29/2024 2:39 AM Age: 43 years old Clinical indication: Shortness of breath TECHNIQUE: Imaging protocol: Radiologic exam of the chest. Views: 1 view. COMPARISON: CR XR chest 1V portable [id number] 09/25/2023 11:24 AM FINDINGS: Lungs: Unremarkable. No consolidation. Pleural spaces: Unremarkable. No pleural effusion. No pneumothorax. Heart/Mediastinum: The heart is enlarged. Bones/joints: Unremarkable. XR/XR chest 1V portable [id number] IMPRESSION: 1. Cardiomegaly.
--- NOTE | 2024-07-29 02:17 | ED_ITS ---
HPI - SOB/Dyspnea 2 General: Chief Complaint: Shortness of Breath/Dyspnea Stated Complaint: SOB Time Seen by Provider: 07/29/24 02:16 History of Present Illness: HPI Narrative: 43-year-old female who presents emergenc y room with shortness of breath, cough, wheezing and low-grade fevers. She is been sick for 3 to 4 days now. She saw a telemedicine doc and was started on an inhaler. She said that not helping and she just become more short of breath. Some inspiratory chest pain. No nausea or vomiting. No altered mental status. Related Data Home Medications Medication Instructions Recorded Confirmed naproxen sodium 220 mg tablet 220 mg PO DAILY PRN Pain 11/29/20 09/25/23 (Aleve) albuterol sulfate 90 mcg/actuation 2 puff inhalation Q6H PRN 09/25/23 09/25/23 aerosol inhaler Shortness Of Breath Or Wheezing Previous Rx's Medication Instructions Recorded polymyxin B sulfate 10,000 1 drp ophthalmic (eye) Q3H 7 days 09/02/22 unit-trimethoprim 1 mg/mL eye drops #10 mL hydrocodone 5 mg-acetaminophen 325 1 tab PO Q6H PRN pain #15 tabs 09/25/23 mg tablet promethazine 25 mg tablet 25 mg PO Q6H PRN nausea and 09/25/23 vomiting #20 tabs benzonatate 200 mg capsule 200 mg PO TID PRN cough #30 caps 07/29/24 doxycycline monohydrate 100 mg 100 mg PO BID 10 days #20 caps 07/29/24 capsule oseltamivir 75 mg capsule (Tamiflu) 75 mg PO BID 5 days #10 caps 07/29/24 prednisone 20 mg tablet 60 mg (3 x 20 mg) PO DAILY 5 days 07/29/24 #15 tabs Allergies Allergy/AdvReac Type Severity Reaction Status Date / Time Penicillins Allergy ALGY-Anaphy Verified 09/02/22 19:40 laxis Review of Systems 2 Narrative: Constitutional symptoms: Negative except as documented in HPI. Skin symptoms: Negative except as documented in HPI. Eye symptoms: Negative except as documented in HPI. ENMT symptoms: Negative except as documented in HPI. Respiratory symptoms: Negative except as documented in HPI. Cardiovascular symptoms: Negative except as documented in HPI. Gastrointestinal symptoms: Negative except as documented in HPI. Genitourinary symptoms: Negative except as documented in HPI. Musculoskeletal symptoms: Negative except as documented in HPI. Neurologic symptoms: Negative except as documented in HPI. Psychiatric symptoms: Negative except as documented in HPI. Endocrine symptoms: Negative except as documented in HPI. Physical Exam 2 Narrative: EXAM NARRATIVE: General: Alert, no acute distress. Skin: Warm, dry. Head: Normocephalic, atraumatic. Neck: Supple, trachea midline. Eye: Extraocular movements are intact. Ears, nose, mouth and throat: Oral mucosa moist. Cardiovascular: Regular rate and rhythm, Normal peripheral perfusion. Respiratory: some expiratory wheeze, mild increased wob, breath sounds are equal, Symmetrical chest wall expansion. Gastrointestinal: Soft, Nontender, Non distended, Normal bowel sounds. Musculoskeletal: Normal ROM, no deformity. Neurological: Alert and oriented to person, place, time, and situation, No focal neurological deficit observed. Psychiatric: Cooperative, appropriate mood & affect. Course 2 Vital Signs: Vital signs: Vital Signs Temperature 98.0 F 07/29/24 02:20 Pulse Rate 90 07/29/24 02:45 Respiratory Rate 22 H 07/29/24 02:45 Blood Pressure 205/116 07/29/24 02:20 Pulse Oximetry 92 07/29/24 02:45 Oxygen Delivery Me thod Room Air 07/29/24 02:45 MDM - SOB/Dyspnea Medical Decision Making Differential diagnosis for patient with shortness of breath includes but is not limited to and based on the above HPI, review of systems and physical exam: Pneumonia. Bronchitis. Asthma or COPD with acute exacerbation. Acute coronary syndrome / DC. Pulmonary embolism. Anxiety. Congestive heart failure. Viral infections including influenza and Covid-19. Atrial fibrillation. Anxiety. Pleural effusion. Pneumothorax. Orders placed to evaluate differential diagnosis based on the above differential, HPI and physical exam Chest x-ray: No acute process. No infiltrate. No pneumothorax. This was reviewed and interpreted by myself the emergency room physician. I also reviewed the radiology report. Lab Review: Laboratory results were reviewed and interpreted by myself the emergency room physician. Lab work is unremarkable. No leukocytosis. Hemoglobin stable at 10.9. No renal failure. I reviewed the patient's medical record. Reexamination: Patient remained stable. No increased work of breathing. No altered mental status. No focal motor deficits. Assessment and plan: Upper respiratory infection Wheezing influenza ?2 updrafts, IV Solu-Medrol and IV doxycycline in the emergency room - Discharged home - Discussed findings and plan with patient. Answered any questions. - All laboratory values were reviewed and interpreted personally by myself, the ER physician - All imaging was reviewed and interpreted personally by myself, the ER physician. - Evaluation and treatment of this problem were appropriate in the emergency setting Lab Data 07/29/24 02:37 07/29/24 02:37 Labs/Radiology: Laboratory Results WBC 9.31 10^3/uL (3.29-11.43) 07/29/24 02:37 RBC 4.67 10^6/uL (3.85-5.65) 07/29/24 02:37 Hgb 10.90 g/dL (11.27-16.99) L 07/29/24 02:37 Hct 36.7 % (36-47) 07/29/24 02:37 MCV 78.6 fl (85-98) L 07/29/24 02:37 MCH 23.3 pg (27-33) L 07/29/24 02:37 MCHC 29.7 g/dL (30-55) L 07/29/24 02:37 RDW 16.0 % (12.1-15.1) H 07/29/24 02:37 Plt Count 472 10^3/cmm (157-399) H 07/29/24 02:37 MPV 8.5 fL (7.4-10.4) 07/29/24 02:37 Neut % (Auto) 83.5 % 07/29/24 02:37 Lymph % (Auto) 9.5 % 07/29/24 02:37 [place] % (Auto) 3.3 % 07/29/24 02:37 Eos % (Auto) 2.7 % 07/29/24 02:37 Baso % (Auto) 0.2 % 07/29/24 02:37 Neut # (Auto) 7.78 10^3/uL (1.8-7.7) H 07/29/24 02:37 Lymph # (Auto) 0.9 10^3/uL (0.8-4.8) 07/29/24 02:37 [place] # (Auto) 0.3 10^3/uL (0.2-0.9) 07/29/24 02:37 Eos # (Auto) 0.3 10^3/uL (0.0-0.8) 07/29/24 02:37 Baso # (Auto) 0.0 10^3/uL (0.0-0.1) 07/29/24 02:37 Nucleated RBC % (auto) 0 % 07/29/24 02:37 Nucleated RBCs # 0.0 /100WBC 07/29/24 02:37 Sodium 139 mmol/L (136-145) 07/29/24 02:37 Potassium 2.9 mmol/L (3.5-5.1) L 07/29/24 02:37 Chloride 97 mmol/L (98-107) L 07/29/24 02:37 Carbon Dioxide 29 mmol/L (22-29) 07/29/24 02:37 Anion Gap 15.9 (5-19) 07/29/24 02:37 BUN 12 mg/dL (6-20) 07/29/24 02:37 Creatinine 0.7 mg/dL (0.5-0.9) 07/29/24 02:37 GFR Calculation 92.2 mL/min (90-130) 07/29/24 02:37 Glucose 128 mg/dL (65-115) H 07/29/24 02:37 Calculated Osmolality 289 mOsm/kg (285-295) 07/29/24 02:37 Lactic Acid 1.3 mmol/L (0.5-2.2) 07/29/24 02:37 Calcium 9.0 mg/dL (8.5-10.5) 07/29/24 02:37 Total Bilirubin 0.4 mg/dL (0.15-1.2) 07/29/24 02:37 AST 38 U/L (0-32) H 07/29/24 02:37 ALT 40 U/L (0-33) H 07/29/24 02:37 Alkaline Phosphatase 122 U/L (35-105) H 07/29/24 02:37 C-Reactive Protein 30.0 mg/L (0.0-4.9) H 07/29/24 02:37 Total Protein 7.4 g/dL (6.6-8.7) 07/29/24 02:37 Albumin 4.2 g/dL (3.5-5.2) 12/19/24 02:37 Globulin 3.2 g/dL (1.3-4.6) 07/29/24 02:37 Coronavirus (PCR) Negative (Negative) 07/29/24 02:37 Influenza A (PCR) Positive (Negative) 07/29/24 02:37 Influenza Type B (PCR) Negative (Negative) 07/29/24 02:37 RSV (PCR) Negative (Negative) 07/29/24 02:37 All radiology interpretation(s) finalized by discharge Discharge Plan Discharge Patient Disposition: Home Clinical Impression: Acute upper respiratory infection, Wheezing, Influenza Condition: Stable Prescriptions: New benzonatate 200 mg capsule 200 mg PO TID PRN (Reason: cough) Qty: 30 0RF prednisone 20 mg tablet 60 mg PO DAILY 5 Days Qty: 15 0RF doxycycline monohydrate 100 mg capsule 100 mg PO BID 10 Days Qty: 20 0RF oseltamivir [Tamiflu] 75 mg capsule 75 mg PO BID 5 Days Qty: 10 0RF No Action polymyxin B sulf-trimethoprim 10,000 unit- 1 mg/mL drops 1 drp ophthalmic (eye) Q3H 7 Days Qty: 10 0RF Rx Instructions: while awake; do not exceed 6 doses in 24 hours naproxen sodium [Aleve] 220 mg Tablet 220 mg PO DAILY PRN (Reason: Pain) albuterol sulfate 90 mcg/actuation Hfa Aerosol Inhaler 2 puff INHALATION Q6H PRN (Reason: Shortness Of Breath Or Wheezing) hydrocodone-acetaminophen 5-325 mg tablet 1 tab PO Q6H PRN (Reason: pain) Qty: 15 0RF promethazine 25 mg tablet 25 mg PO Q6H PRN (Reason: nausea and vomiting) Qty: 20 0RF Discharge Orders: Discharge ED (Routine); Ordered 07/29/24 Ordered By: Laine Myers Referrals: Raphael Acevedo DO [Primary Care Provider] - Discharge Diet: Usual diet Discharge Activity: Increase activity as tolerated Patient Instructions: Upper Respiratory Infection (ED), Opioid Safety, Pain Management Activity Restrictions/Additional Instructions: Thank you for choosing [facility] for your healthcare needs today. Please realize this is an emergency room and that we are providing you with a medical screening exam and this may not be complete and all inclusive of all the testing and or work up that you may need to determine your ailment or severity of your illness. You have been screened and evaluated and felt safe for discharge. Health conditions do change or evolve sometimes and as such it is important that you follow up with your Primary Doctor to be re checked, 3-5 days is a general good time frame for follow up. You are always welcome to return to the ED for re assessment if your symptoms are worsening or you have new concerns Coding Level of Care Code ED Business Administrator for Lai Pina
[2024-07-29 02:20] VITALS: BP 205/116; PULSE 96; RESP 20; TEMP 36.7; O2SAT 94; BMI 36.3
--- NOTE | 2024-07-29 02:23 | ECG_ITS ---
[employer] Test Date: 2024-07-29 Pat Name: Court Han Department: Room: Gender: Female Program Review Director: : 1980 Requested By: Laine Montana Order Number: [id number] Childs MD: Kade Page M.D. Measurements Intervals [place] Rate: 91 P: 50 [place]: 170 QRS: -15 QRSD: 99 T: 121 QT: 385 QTc: 474 Interpretive Statements SINUS RHYTHM LEFT ATRIAL ENLARGEMENT [-0.15mV P-WAVE IN V1/V2] LEFT VENTRICULAR HYPERTROPHY AND ST-T CHANGE [VOLTAGE CRITERIA PLUS ST/T ABNORMALITY] POSSIBLE ANTERIOR MYOCARDIAL INFARCTION , OF INDETERMINATE AGE [30 ms Q WAVE IN V3/V4, OR R < 0.2 mV IN V4] Compared to ECG 11/29/2020 14:50:27 Atrial abnormality now present Left ventricular hypertrophy now present ST (T wave) deviation now present. Myocardial infarct finding now present Incomplete right bundle-branch block no longer present T-wave abnormality no longer present. Possible ischemia no longer present Electronically Signed On 07-30-2024 00:02:31 PRISON KEEPER by Kade Page M.D. [email or web address]
[2024-07-29 02:43] LABS: Basophils % 0.2 %; Eosinophils # 0.3 10^3/uL (0.0-0.8); Eosinophils % 2.7 %; Hematocrit 36.7 % (36-47); Lymphocytes # 0.9 10^3/uL (0.8-4.8); Lymphocytes % 9.5 %; Mean Corpuscular HGB Conc 29.7 g/dL (30-55); Mean Corpuscular Hemoglobin 23.3 pg (27-33); Mean Corpuscular Volume 78.6 fl (85-98); Mean Platelet Volume 8.5 fL (7.4-10.4); Monocytes # 0.3 10^3/uL (0.2-0.9); Monocytes % 3.3 %; Neutrophils # 7.78 10^3/uL (1.8-7.7); Neutrophils % 83.5 %; Nucleated Red Blood Cells % 0 %; Platelet Count 472 10^3/cmm (157-399); Red Blood Count 4.67 10^6/uL (3.85-5.65); White Blood Count 9.31 10^3/uL (3.29-11.43)
[2024-07-29] MEDS: ipratropium-albuterol 3 mL Neb INHALATION (02:44)
[2024-07-29] MEDS: albuterol 2.5 mg/3 mL Neb INHALATION (02:44)
[2024-07-29 02:45] VITALS: PULSE 90; RESP 22; O2SAT 92
[2024-07-29] MEDS: doxycycline 100 MG in sodium chloride 0.9% (plus) 100 ML IV (02:45)
[2024-07-29] MEDS: methylPREDNISolone sod succ 125 mg/2 mL INJ IVP (02:46)
[2024-07-29 02:58] VITALS: BP 191/92; PULSE 93; O2SAT 93
[2024-07-29 02:59] LABS: Alanine Aminotransferase 40 U/L (0-33); Albumin Level 4.2 g/dL (3.5-5.2); Alkaline Phosphatase 122 U/L (35-105); Anion Gap 15.9 (5-19); Aspartate Amino Transferase 38 U/L (0-32); Blood Urea Nitrogen 12 mg/dL (6-20); Carbon Dioxide 29 mmol/L (22-29); Chloride 97 mmol/L (98-107); Creatinine Clr Calc Pharmacy 114.5949; Globulin 3.2 g/dL (1.3-4.6); Glomerular Filtration Rate 92.2 mL/min (90-130); Glucose 128 mg/dL (65-115); Lactic Sepsis W/Reflex 1.3 mmol/L (0.5-2.2); Osmolality Calculated 289 mOsm/kg (285-295); Sodium 139 mmol/L (136-145); Total Bilirubin 0.4 mg/dL (0.15-1.2); Total Protein 7.4 g/dL (6.6-8.7)
[2024-07-29 03:03] LABS: Potassium 2.9 mmol/L (3.5-5.1)
[2024-07-29 03:17] LABS: Covid PCR NEGATIVE (Negative); Influenza A POSITIVE (Negative); Influenza B NEGATIVE (Negative); Respiratory Syncytial Virus Ce NEGATIVE (Negative)
[2024-07-29 03:28] VITALS: BP 180/90; PULSE 88; O2SAT 92
[2024-07-29] MEDS: potassium chloride oral liq 20 mEq/15 mL UDC 40 MEQ PO (03:41)
[2024-07-29 04:05] VITALS: BP 190/78; PULSE 86; O2SAT 93
== END 2024-07-29 04:06 | disposition home or self-care (01) ==
PROVIDERS: Emergency Provider Emergency Medicine; PCP Family Medicine
DX: J10.1 Influenza due to other identified influenza virus with other respiratory manifestations (principal); R06.2 Wheezing; Z11.52 Encounter for screening for COVID-19
CPT/HCPCS: 0241U; 71045; 80053; 83605; 85025; 86140; 93005; 94640; 96365; 96375; 99285; J2919; J3490; J7613

== ENCOUNTER 2024-07-30 00:55 | Inpatient (IN) | payer MEDICAID, SELFPAY ==
[2024-07-30] VITALS (16 sets, daily range): BP systolic 154–210; BP diastolic 60–108; PULSE 86–106; RESP 17–30; TEMP 36.4–36.9; O2SAT 91–99
--- NOTE | 2024-07-30 01:42 | XRR_ITS ---
PROCEDURE INFORMATION: Exam: XR Chest Exam date and time: 07/30/2024 1:48 AM Age: 43 years old Clinical indication: Cough and fever; Additional info: Shortness of breath TECHNIQUE: Imaging protocol: Radiologic exam of the chest. Views: 1 view. COMPARISON: CR (CHEST, ) 07/29/2024 2:39 AM FINDINGS: Lungs: Unremarkable. No consolidation. Pleural spaces: Unremarkable. No pleural effusion. No pneumothorax. Heart/Mediastinum: The heart is enlarged. Bones/joints: Unremarkable. XR/XR chest 1V portable [id number] IMPRESSION: 1. Cardiomegaly.
--- NOTE | 2024-07-30 01:46 | W.ED.SOB ---
HPI - SOB/Dyspnea General: Chief Complaint: Shortness of Breath/Dyspnea Stated Complaint: flu+ SOB Time Seen by Provider: 07/30/24 01:35 History of Present Illness: HPI Narrative: 43-year-old female with a history of asthma and obesity who presents emergency room with shortness of breath and cough. She says I feel like there is concrete in my lungs . She was diagnosed with influenza yesterday. O2 sats are 9394. She is been tachypneic. Related Data Home Medications Medication Instructions Recorded Confirmed naproxen sodium 220 mg tablet 220 mg PO DAILY PRN Pain 11/29/20 09/25/23 (Aleve) albuterol sulfate 90 mcg/actuation 2 puff inhalation Q6H PRN 09/25/23 09/25/23 aerosol inhaler Shortness Of Breath Or Wheezing Previous Rx's Medication Instructions Recorded polymyxin B sulfate 10,000 1 drp ophthalmic (eye) Q3H 7 days 09/02/22 unit-trimethoprim 1 mg/mL eye drops #10 mL hydrocodone 5 mg-acetaminophen 325 1 tab PO Q6H PRN pain #15 tabs 09/25/23 mg tablet promethazine 25 mg tablet 25 mg PO Q6H PRN nausea and 09/25/23 vomiting #20 tabs benzonatate 200 mg capsule 200 mg PO TID PRN cough #30 caps 07/29/24 doxycycline monohydrate 100 mg 100 mg PO BID 10 days #20 caps 07/29/24 capsule oseltamivir 75 mg capsule (Tamiflu) 75 mg PO BID 5 days #10 caps 07/29/24 prednisone 20 mg tablet 60 mg (3 x 20 mg) PO DAILY 5 days 07/29/24 #15 tabs Allergies Allergy/AdvReac Type Severity Reaction Status Date / Time Penicillins Allergy ALGY-Anaphy Verified 09/02/22 19:40 laxis Review of Systems Narrative: Constitutional symptoms: Negative except as documented in HPI. Skin symptoms: Negative except as documented in HPI. Eye symptoms: Negative except as documented in HPI. ENMT symptoms: Negative except as documented in HPI. Respiratory symptoms: Negative except as documented in HPI. Cardiovascular symptoms: Negative except as documented in HPI. Gastrointestinal symptoms: Negative except as documented in HPI. Genitourinary symptoms: Negative except as documented in HPI. Musculoskeletal symptoms: Negative except as documented in HPI. Neurologic symptoms: Negative except as documented in HPI. Psychiatric symptoms: Negative except as documented in HPI. Endocrine symptoms: Negative except as documented in HPI. [facility] ED PFSH: Medical History Asthma Social History (Updated 07/30/24 @ 03:52 by Noe Matamoros MD) Smoking and tobacco/nicotine status: current every day tobacco/nicotine user Alcohol intake: never Substance/Drug Use: never Physical Exam Narrative: EXAM NARRATIVE: General: Alert, no acute distress. Skin: Warm, dry. Head: Normocephalic, atraumatic. Neck: Supple, trachea midline. Eye: Extraocular movements are intact. Ears, nose, mouth and throat: Oral mucosa moist. Cardiovascular: Regular rate and rhythm, Normal peripheral perfusion. Respiratory: coarse, scattered wheeze, mild increased wob. tachypnea, breath sounds are equal, Symmetrical chest wall expansion. Gastrointestinal: Soft, Nontender, Non distended, Normal bowel sounds. Musculoskeletal: Normal ROM, no deformity. Neurological: Alert and oriented to person, place, time, and situation, No focal neurological deficit observed. Psychiatric: Cooperative, appropriate mood & affect. Course Vital Signs: Vital signs: Vital Signs Temperature 98.2 F 07/30/24 00:59 Pulse Rate 92 07/30/24 02:11 Respiratory Rate 30 H 07/30/24 02:11 Blood Pressure 168/89 07/30/24 02:07 Pulse Oximetry 91 07/30/24 02:11 Oxygen Delivery Me thod Room Air 07/30/24 02:11 MDM - SOB/Dyspnea Medical Decision Making Differential diagnosis for patient with shortness of breath includes but is not limited to and based on the above HPI, review of systems and physical exam: Pneumonia. Bronchitis. Asthma or COPD with acute exacerbation. Acute coronary syndrome / OK. Pulmonary embolism. Anxiety. Congestive heart failure. Viral infections including influenza and Covid-19. Atrial fibrillation. Anxiety. Pleural effusion. Pneumothorax. Orders placed to evaluate differential diagnosis based on the above differential, HPI and physical exam Lab Review: Laboratory results were reviewed and interpreted by myself the emergency room physician. Has known influenza. Blood gas was drawn. She is slightly hypoxemic with a O2 sat of 86% on room air. She has been placed on oxygen. Chest x-ray: No acute process. No infiltrate. No pneumothorax. This was reviewed and interpreted by myself the emergency room physician. I also reviewed the radiology report. I reviewed the patient's medical record. Reexamination: Patient remains quite tachypneic with a lot of wheeze after breathing treatments. She is satting better on 2 L nasal cannula. Consultation: I spoke with Dr. Matamoros who agrees to admission to a [facility] floor. Assessment and plan: Influenza Hypoxemia Increased work of breathing ?2 updrafts in the emergency room. -I discussed the patient with the hospitalist on-call who is admitting the patient. - Discussed findings and plan with patient. Answered any questions. - All laboratory values were reviewed and interpreted personally by myself, the ER physician - All imaging was reviewed and interpreted personally by myself, the ER physician. - Evaluation and treatment of this problem were appropriate in the emergency setting Lab Data Labs/Radiology: Laboratory Results Specimen Type Arterial 07/30/24 02:20 Sample Site Radial, left 07/30/24 02:20 ABG pH 7.44 (7.35-7.45) 07/30/24 02:20 ABG pCO2 45.9 mmHg (35-45) H 07/30/24 02:20 ABG pO2 54.6 mmHg (80.0-100.0) L 07/30/24 02:20 ABG PO2/FiO2 Ratio 260 07/30/24 02:20 ABG HCO3 31.0 mmol/L (22-26) H 07/30/24 02:20 ABG O2 Saturation 88.1 07/30/24 02:20 ABG Base Excess 6.0 mmol/L (-2.0-2.0) H 07/30/24 02:20 Les Test Pos 07/30/24 02:20 A-a O2 Gradient 5.1 mmHg (5-10) 07/30/24 02:20 Hematocrit 33.3 % (37-47) L 07/30/24 02:20 Hgb O2 Saturation 86.0 % (95-100) L 07/30/24 02:20 Carboxyhemoglobin 1.4 %THgb (0.4-20.1) 07/30/24 02:20 Methemoglobin 1.0 % (0.4-1.5) 07/30/24 02:20 Total Hemoglobin 10.9 g/dL (12-16) L 07/30/24 02:20 Sodium 141.0 mmol/L (131-143) 07/30/24 02:20 Potassium 3.1 mmol/L (3.5-5.0) L 07/30/24 02:20 Glucose 103.0 mg/dL (70-115) 07/30/24 02:20 Ionized Calcium 1.2 mmol/L (1.1-1.4) 07/30/24 02:20 O2 Delivery Device Room air 07/30/24 02:20 FiO2 21.0 % 07/30/24 02:20 Motorboat Mechanic Inboard/Outboard ID [id number] 07/30/24 02:20 All radiology interpretation(s) finalized by discharge Discharge Plan Discharge Patient Disposition: Admitted As Inpatient Clinical Impression: Influenza, Hypoxemia Condition: Stable Discharge Diet: Usual diet Discharge Activity: Increase activity as tolerated Coding Level of Care Code ED Information Systems Security Officer for Lai Pina
[2024-07-30] MEDS: albuterol 2.5 mg/3 mL Neb INHALATION ×4 (02:09→15:46)
[2024-07-30] MEDS: ipratropium-albuterol 3 mL Neb INHALATION (02:09)
[2024-07-30 02:25] LABS: ABG PCO2 45.9 mmHg (35-45); ABG PH Result 7.44 (7.35-7.45); Alveolar-Arterial Oxygen Gradi 5.1 mmHg (5-10); Arterial Blood Gas Hematocrit 33.3 % (37-47); Blood Gas Allen Test Pos; Blood Gas Sample Type Arterial; Carboxyhemoglobin 1.4 %THgb (0.4-20.1); Ionized Calcium Level - ABG 1.2 mmol/L (1.1-1.4); Oxygen Saturation ABG 88.1; PO2 ABG 54.6 mmHg (80.0-100.0); Potassium Level - ABG 3.1 mmol/L (3.5-5.0); Total Hemoglobin 10.9 g/dL (12-16)
[2024-07-30 02:26] LABS: Blood Gas Operator Identificat 600455; Blood Gas Sample Site Radial, left; Oxygen Device ROOM AIR; PO2 FiO2 Ratio Arterial Blood 260
--- NOTE | 2024-07-30 03:49 | P.HP_ITS ---
Providers/Chief Complaint Primary Care Provider: Raphael Acevedo DO Chief Complaint: flu+ SOB History of Present Illness Court Han is a 43 year old female with a past medical history of obesity, current smoker history of asthma who presents [facility] due to shortness of breath, wheezing, chills, fatigue, malaise. Currently patient is alert oriented x 3, following commands, reports that for the last few days she has had shortness of breath, wheezing, fatigue, malaise, fevers, chills. Denies any chest pain, no palpitations. No nausea, no vomiting, no abdominal pain. Denies a sore throat. She does smoke but has not been smoking for the last few days since she has been sick. In the emergency room she was found to have flu A, hypoxic, denies being , has a history of laparoscopicfalope ring sterilization Review of Systems Const: Reports: chills, fatigue and malaise Card: Denies: chest pain Resp: Reports: dyspnea and non-productive cough Medications/Allergies Home Medications Medication Instructions Recorded Confirmed Last Taken Type naproxen sodium 220 mg tablet 220 mg PO DAILY PRN Pain 11/29/20 09/25/23 09/25/23 History (Aleve) polymyxin B sulfate 10,000 1 drp ophthalmic (eye) Q3H 7 days 09/02/22 09/25/23 Unknown Rx unit-trimethoprim 1 mg/mL eye drops #10 mL albuterol sulfate 90 mcg/actuation 2 puff inhalation Q6H PRN 09/25/23 09/25/23 Unknown History aerosol inhaler Shortness Of Breath Or Wheezing hydrocodone 5 mg-acetaminophen 325 1 tab PO Q6H PRN pain #15 tabs 09/25/23 Unknown Rx mg tablet promethazine 25 mg tablet 25 mg PO Q6H PRN nausea and 09/25/23 Unknown Rx vomiting #20 tabs benzonatate 200 mg capsule 200 mg PO TID PRN cough #30 caps 07/29/24 Unknown Rx doxycycline monohydrate 100 mg 100 mg PO BID 10 days #20 caps 07/29/24 Unknown Rx capsule oseltamivir 75 mg capsule (Tamiflu) 75 mg PO BID 5 days #10 caps 07/29/24 Unknown Rx prednisone 20 mg tablet 60 mg (3 x 20 mg) PO DAILY 5 days 12/19/24 Unknown Rx #15 tabs Allergies Allergy/AdvReac Type Severity Reaction Status Date / Time Penicillins Allergy ALGY-Anaphy Verified 09/02/22 19:40 laxis PFSH Acute PFSH: Medical History (Updated 07/30/24 @ 03:55 by Noe Matamoros MD) Asthma Social History (Updated 07/30/24 @ 03:52 by Noe Matamoros MD) Smoking and tobacco/nicotine status: current every day tobacco/nicotine user Alcohol intake: never Substance/Drug Use: never Vitals/I&O/Wt Last Vital Signs Temp 98.2 F 07/30/24 00:59 Pulse 92 07/30/24 02:11 Resp 30 H 07/30/24 02:11 BP 168/89 07/30/24 02:07 Pulse Ox 91 07/30/24 02:11 O2 Del Method Room Air 07/30/24 02:11 Weight last 48 hrs Weight 92.986 kg Physical Exam Const: COMMON NORMALS: no acute distress and patient oriented x3 HENMT: COMMON NORMALS: normocephalic HEAD & SCALP: normocephalic Neck/C-Spine: COMMON NORMALS: no JVD Resp: COMMON NORMALS: normal respiratory effort, No retractions, No use of accessory muscles and clear to auscultation bilaterally AUSCULTATION: crackles and wheezes Cardio: COMMON NORMALS: regular rate, regular rhythm, S1 normal heart sound present and S2 normal heart sound present RATE: regular rate RHYTHM: regular rhythm HEART SOUNDS: S1 normal heart sound present and S2 normal heart sound present GI: COMMON NORMALS: Normal to inspection, nondistended, normoactive bowel sounds present, Soft to palpation and non-tender Extremity: COMMON NORMALS: no pedal edema Neuro: COMMON NORMALS: patient oriented x3, CN's II-XII intact bilaterally and moves all extremities Psych: COMMON NORMALS: mental status grossly normal A&P Assessment and plan (1) Influenza A: (2) Acute hypoxic respiratory failure: (3) Asthma exacerbation: Plan Plan ? Monitor respiratory status closely ? Oxygen therapy ? Tamiflu ? Solu-Medrol 125 followed by 40 every 8 hours ? DuoNeb ? Budesonide # Full code # Lovenox for DVT prophylaxis Attestations Medical Necessity Statement*: Patient requires hospitalization for acute hypoxic respiratory failure secondary to influenza A, asthma exacerbation Diagnoses Influenza A J10.1 Acute hypoxic respiratory failure J96.01 Asthma exacerbation J45.901
[2024-07-30] MEDS: oseltamivir phosphate 75 mg Capsule PO (04:21)
[2024-07-30] MEDS: methylPREDNISolone sod succ 125 mg/2 mL INJ IVP (04:21)
[2024-07-30 04:55] LABS: NT Pro B Type Natriuretic Pept 2594 pg/mL (0-125); Procalcitonin 0.09 ng/mL (0-0.5)
--- NOTE | 2024-07-30 05:05 | PC.NURSE ---
Patient states I don't do vaccines and I don't do pain meds. Patient states her dad was a heroin addict and she doesn't want to take any pain meds.
--- NOTE | 2024-07-30 05:29 | PC.NURSE ---
Addendum entered by Hoda Haynes RN 07/30/24 06:10: Ordered to start Norvasc 10 mg daily. Original Note: Dr. Matamoros notified of blood pressure of 210/105.
[2024-07-30] MEDS: amlodipine 10 mg Tablet PO (06:21)
[2024-07-30] MEDS: budesonide 0.5 mg/2 mL Neb INHALATION (07:17)
[2024-07-30] MEDS: benzonatate 100 mg Capsule 200 MG PO (08:10)
[2024-07-30] MEDS: pantoprazole DR 40 mg Tablet PO (08:10)
[2024-07-30 08:56] LABS: Albumin Level 4.2 g/dL (3.5-5.2); Anion Gap 15.6 (5-19); Blood Urea Nitrogen 16 mg/dL (6-20); Calcium 9.2 mg/dL (8.5-10.5); Carbon Dioxide 29 mmol/L (22-29); Chloride 98 mmol/L (98-107); Chol HDL Ratio 4.38 mg/dL (0.0-4.40); Cholesterol 206 mg/dL (0-200); Creatinine Clr Calc Pharmacy 112.5167; Estmated Average Glucose 120; Glucose 254 mg/dL (65-115); HDL Cholesterol 47 mg/dL (60-100); Hemoglobin A1C 5.8 % (4.0-6.0); LDL Cholesterol Calculated 141 mg/dL (50-129); Phosphorus 2.3 mg/dL (2.5-4.5); Potassium 3.6 mmol/L (3.5-5.1); Sodium 139 mmol/L (136-145); Triglycerides 91 mg/dL (0-150)
--- NOTE | 2024-07-30 09:40 | PC.CHAP ---
Pastoral Care Encounter/Spiritual Assessment Type of Contact [] Declined meat counter clerk visit [] Patient/Family/Request visit [] Outpatient visit [] Follow-up visit [] Physician referral [] Code/Alert [X] Routine visit [] Staff referral [] Actively dying [] Patient sleeping [] Family support [] [] Out of room [] Palliative care [] [] Receiving care in room [] Pre-surgical visit [] Trauma [] Long length of stay [] ICU visit [X] Other: STOP Sign Relational/Emotional Strength [] Patient feels connected with others/family/visitors/staff [] Distress [] Loneliness/isolation [] Abandonment Spirituality of Patient [] Person of Kalli [] Attends Yazidism of their [place] [] Believes in Prayer [] Reads Bible or Protestant materials [] There are Spiritual issues to be addressed Apprenticeship Representative Interventions [] Prayer [] Active listening [] Non-anxious presence [] Spiritual/emotional support [] Crisis/trauma care [] Spiritual counseling [] Bereavement support [] Provided bereavement packet [] Provided Bible/devotional materials [] Provided toy/stuffed animal, coloring book to patient or family member [] Provided Communion [] Anointing/[place] [] Salvation [] Completed spiritual assessment [] Other: Impact on Illness or Injury [] Angry [] Fearful [] Anxious [] Often cries [] Exhaustion [] Unable to work [] Unable to attend presybeterian [] Unable to walk/stand [] Unable to read [] Unable to drive [] Unable to eat/drink [] Unable to sleep [] Unable to be with family [] Patient intubated [] Other: Summary Time spent with patient
--- NOTE | 2024-07-30 12:43 | USCV_ITS ---
Court Han Age: 43 Gender: F : 1980 Exam Date: 07/30/2024 14:20 Ordering Phys: López Booker MD Technologist: Andrzej Jones [place] [facility] [place]: hypoxia BP: 170 / 87 HR: 88 Rhythm: Sinus Technical Quality: Adequate MEASUREMENTS (Male / Female) Normal Values 2D ECHO LV Diastolic Diameter PLAX 3.6 cm 4.2 - 5.9 / 3.9 - 5.3 cm IVS Diastolic Thickness 1.6 cm 0.6 - 1.0 / 0.6 - 0.9 cm IVS Systolic Thickness 2.0 cm LVPW Diastolic Thickness 2.8 cm 0.6 - 1.0 / 0.6 - 0.9 cm LVPW Systolic Thickness 2.5 cm LVOT Diameter 2.1 cm LV Ejection Fraction 2D Teich 62.6 % LV Ejection Fraction MOD 4C 79.8 % LV Ejection Fraction MOD 2C 62.6 % LV Ejection Fraction 2C AL 63.3 % LA Diameter 4.4 cm RA Systolic Volume 4C AL 48.6 ml RA Systolic Volume 4C MOD 51.0 ml LA Sys Volume AL 74.1 cm cubed LA Sys Volume Index AL 32.0 cm cubed/m squared Aorta at Sinotubular Diameter 2.3 cm IVC Diameter 1.4 cm M-MODE LA Ao Ratio MM 1.7 MV E Point Septal Separation 0.7 cm AV Cusp Separation MM 1.8 cm DOPPLER AV Peak Velocity 211.7 cm/s LVOT Peak Velocity 133.0 cm/s AV Area Cont Eq vti 2.4 cm squared AV Area Cont Eq pk 2.2 cm squared MV Peak Velocity 182.0 cm/s MV Area PHT 5.1 cm squared Mitral E to A Ratio 0.6 TR Peak Velocity 260.0 cm/s TR Peak Gradient 27.0 mmHg TR Mean Velocity 203.0 cm/s TR Mean Gradient 18.2 mmHg TR Velocity Time Integral 43.4 cm PV Peak Velocity 179.0 cm/s RV Ejection Time 0.3 s FINDINGS Left Ventricle Left ventricle is normal in size. LV systolic function is normal with EF of 60 to 65%. No regional wall motion abnormalities are seen. Moderate to severe left ventricular hypertrophy. Grade 1 diastolic dysfunction. Right Ventricle Normal in size and function. Right Atrium Normal in size Left Atrium Dilated Mitral Valve Grossly has moderate mitral annular calcification. Mild mitral stenosis with mean gradient across the mitral valve of 5.36 mmHg. Mild mitral regurgitation. Aortic Valve Grossly normal. Mild aortic stenosis with aortic valve area of 2.1 cm2 and mean gradient of 11 mmHg. Mild aortic regurgitation. Tricuspid Valve Mild tricuspid regurgitation. Insufficient TR jet to calculate RVSP. Pulmonic Valve Not well-visualized. Pericardium Normal Aorta Normal in size IVC Appears to be normal CONCLUSIONS Technically limited quality echocardiogram because of poor ultranosic windows. LV systolic function is normal with EF of 60 to 65%. Moderate to severe left ventricular hypertrophy. Grade 1 diastolic dysfunction. Left atrial dilation Moderate mitral annular calcification. Mild mitral stenosis. Mild mitral regurgitation. Mild aortic stenosis. Mild tricuspid regurgitation No comparison studies are available. Killian Major MD (Electronically Signed) Final Date: 31 July 2024 10:58 S
--- NOTE | 2024-07-30 16:31 | PM.DCS ---
Discharge Providers Date of Admission: 07/30/24 04:05 Date of Discharge: July 30, 2024 Attending Provider at Admission: Noe Matamoros MD Attending Provider at Discharge: López Booker Primary Care Provider: Raphael Aceveod DO Diagnoses at Discharge Discharge Diagnosis (1) Influenza A: Status: Acute (2) Acute hypoxic respiratory failure: Status: Acute (3) Asthma exacerbation: Status: Acute Reason for Visit Reason for Visit: flu+ SOB Brief History: Court Han is a 43 year old female with a past medical history of obesity, current smoker history of asthma who presents [facility] due to shortness of breath, wheezing, chills, fatigue, malaise. Currently patient is alert oriented x 3, following commands, reports that for the last few days she has had shortness of breath, wheezing, fatigue, malaise, fevers, chills. Denies any chest pain, no palpitations. No nausea, no vomiting, no abdominal pain. Denies a sore throat. She does smoke but has not been smoking for the last few days since she has been sick. In the emergency room she was found to have flu A, hypoxic, denies being , has a history of laparoscopicfalope ring sterilization Hospital Course Hospital Course She was started on treatment with Tamiflu, oxygen support, breathing treatments with DuoNebs, budesonide with some gradual improvement in her condition, although still getting dyspneic with exertion. Diminished air entry, wheezing on exam as per discussion with her. Was also advised on smoking cessation, and knows she needs to quit, but he is not ready to quit. Declines nicotine replacement. She declined to stay further for additional treatment, stating that she had to take care of her children, becoming tearful, but denying any thoughts of self-harm or suicidal ideation, and understanding the risks of worsening condition, further relapse, respiratory failure, other potentially disabling or life-threatening complication, understanding she may change her mind to return after leaving AGAINST MEDICAL ADVICE. Prescription given to her for her nebulizer, albuterol nebs, IV fluid, prednisone, Tessalon. Previously also received prescription for doxycycline. She states she will seek medical attention in case of any concerns and will follow-up with primary provider. As per discussion with her workup also was not completed, with noted incidentally cardiomegaly on chest x-ray, echocardiogram has been requested for further assessment which has been obtained but not interpreted. She will seek to discuss results with her primary provider at follow-up. Physical Exam Const: COMMON NORMALS: patient oriented x3 and alert GENERAL APPEARANCE: cooperative ORIENTATION/CONSCIOUSNESS: Yes awake HENMT: COMMON NORMALS: oropharynx normal Neck/C-Spine: COMMON NORMALS: no JVD Resp: COMMON NORMALS: normal respiratory effort AUSCULTATION: wheezes Cardio: COMMON NORMALS: no JVD, regular rhythm, S1 normal heart sound present, S2 normal heart sound present and No murmurs present (Cardio) RHYTHM: regular rhythm HEART SOUNDS: S1 normal heart sound present and S2 normal heart sound present GI: COMMON NORMALS: Normal to inspection, nondistended, normoactive bowel sounds present, Soft to palpation and non-tender PALPATION: Yes Soft to palpation Extremity: COMMON NORMALS: no joint enlargement and no pedal edema Neuro: COMMON NORMALS: patient oriented x3 and moves all extremities SENSORIUM/ORIENTATION: Yes alert Skin: COMMON NORMALS: no rashes or lesions noted GENERAL SKIN EXAM: no rashes or lesions noted Discharge Data Studies Completed and Pending Completed Studies During Hospitalization Category Date Time Status XR chest 1V portable [id number] Stat Exams 07/30/24 01:42 Completed Pending at discharge Category Date Time Status Blood Culture Routine Lab 07/30/24 08:23 Results Drug Screen Serum [Serum Drug Panel 7] Routine Lab 07/30/24 14:51 Received Sputum Culture and Gram Stain Stat Lab 07/30/24 03:48 Uncollected CV. echo complete* [id number] Routine Ultrasound 07/30/24 12:43 Taken Radiology Impressions Chest X-Ray 07/30/24 01:42 IMPRESSION: 1. Cardiomegaly. Laboratory Results Specimen Type Arterial 07/30/24 02:20 Sample Site Radial, left 07/30/24 02:20 ABG pH 7.44 (7.35-7.45) 07/30/24 02:20 ABG pCO2 45.9 mmHg (35-45) H 07/30/24 02:20 ABG pO2 54.6 mmHg (80.0-100.0) L 07/30/24 02:20 ABG PO2/FiO2 Ratio 260 07/30/24 02:20 ABG HCO3 31.0 mmol/L (22-26) H 07/30/24 02:20 ABG O2 Saturation 88.1 07/30/24 02:20 ABG Base Excess 6.0 mmol/L (-2.0-2.0) H 07/30/24 02:20 Les Test Pos 07/30/24 02:20 A-a O2 Gradient 5.1 mmHg (5-10) 07/30/24 02:20 Hematocrit 33.3 % (37-47) L 07/30/24 02:20 Hgb O2 Saturation 86.0 % (95-100) L 07/30/24 02:20 Carboxyhemoglobin 1.4 %THgb (0.4-20.1) 07/30/24 02:20 Methemoglobin 1.0 % (0.4-1.5) 07/30/24 02:20 Total Hemoglobin 10.9 g/dL (12-16) L 07/30/24 02:20 Sodium 141.0 mmol/L (131-143) 07/30/24 02:20 Potassium 3.1 mmol/L (3.5-5.0) L 07/30/24 02:20 Glucose 103.0 mg/dL (70-115) 07/30/24 02:20 Ionized Calcium 1.2 mmol/L (1.1-1.4) 07/30/24 02:20 O2 Delivery Device Room air 07/30/24 02:20 FiO2 21.0 % 07/30/24 02:20 Blender Conveyor Operator ID [id number] 07/30/24 02:20 Sodium 139 mmol/L (136-145) 07/30/24 08:23 Potassium 3.6 mmol/L (3.5-5.1) 07/30/24 08:23 Chloride 98 mmol/L (98-107) 07/30/24 08:23 Carbon Dioxide 29 mmol/L (22-29) 07/30/24 08:23 Anion Gap 15.6 (5-19) 07/30/24 08:23 BUN 16 mg/dL (6-20) 07/30/24 08:23 Creatinine 0.8 mg/dL (0.5-0.9) 07/30/24 08:23 GFR Calculation 79.0 mL/min (90-130) L 07/30/24 08:23 Glucose 254 mg/dL (65-115) H 07/30/24 08:23 Estimat Average Glucose 120 07/30/24 08:23 Hemoglobin A1c 5.8 % (4.0-6.0) 07/30/24 08:23 Calcium 9.2 mg/dL (8.5-10.5) 07/30/24 08:23 Phosphorus 2.3 mg/dL (2.5-4.5) L 07/30/24 08:23 NT-Pro-B Natriuret Pep 2594 pg/mL (0-125) H 07/30/24 04:20 Albumin 4.2 g/dL (3.5-5.2) 07/30/24 08:23 Triglycerides 91 mg/dL (0-150) 07/30/24 08:23 Cholesterol 206 mg/dL (0-200) H 07/30/24 08:23 LDL Cholesterol, Calc 141 mg/dL (50-129) H 07/30/24 08:23 HDL Cholesterol 47 mg/dL (60-100) L 07/30/24 08:23 LDL/HDL Ratio 3.00 RATIO (0.00-3.22) 07/30/24 08:23 Cholesterol/HDL Ratio 4.38 mg/dL (0.0-4.40) 07/30/24 08:23 Procalcitonin 0.09 ng/mL (0-0.5) 07/30/24 04:20 Ser , Semi-Qnt 1.00 mIU/mL 07/30/24 04:20 Vitals Last Vital Signs Temp 97.9 F 07/30/24 15:32 Pulse 86 07/30/24 15:49 Resp 18 07/30/24 15:42 BP 174/108 07/30/24 15:32 Pulse Ox 94 07/30/24 15:42 O2 Del Method Room Air 07/30/24 15:42 O2 Flow Rate 2 07/30/24 10:59 Discharge Plan Discharge Patient Disposition: Left Against Medical Advice Condition: Fair Prescriptions: New amlodipine 10 mg Tablet 10 mg PO DAILY Qty: 90 0RF albuterol sulfate 1.25 mg/3 mL solution for nebulization 2.5 mg inhalation Q6H PRN (Reason: shortness of breath or wheezing) Qty: 90 3RF Continued prednisone 20 mg tablet 60 mg PO DAILY 5 Days Qty: 15 0RF oseltamivir [Tamiflu] 75 mg capsule 75 mg PO BID 5 Days Qty: 10 0RF albuterol sulfate 90 mcg/actuation Hfa Aerosol Inhaler 2 puff INHALATION Q6H PRN (Reason: Shortness Of Breath Or Wheezing) benzonatate 200 mg capsule 200 mg PO TID PRN (Reason: cough) Qty: 30 0RF doxycycline monohydrate 100 mg capsule 100 mg PO BID 10 Days Qty: 20 0RF Other Ambulatory Orders: DME: Nebulizer with Neb Kit (Order) Timeframe: 1 Day Location: None Selected Ordered By: López Booker Referrals: Raphael Acevedo DO [Primary Care Provider] - 1-3 days Discharge Diet: Usual diet Discharge Activity: Increase activity as tolerated Patient Instructions: Asthma Exacerbation - Adult, Oseltamivir (By mouth), How to Stop Smoking (GEN), Cigarette Smoking and Your Health (GEN), Influenza (DC), Opioid Safety Activity Restrictions/Additional Instructions: You are leaving the hospital prematurely and as discussed are risking worsening condition or failure of treatment, respiratory failure, disabling or life-threatening complication. Consider staying or returning to the hospital. Seek medical attention as soon as possible, revisit with your primary provider for reassessment. Complete Tamiflu for influenza A infection, steroid course, continue nebulization treatments. Seek medical attention immediately in case of any worsening or new concerning symptoms. Please stop smoking, avoid smoking while recovering as smoking elation is likely to worsen respiratory function and asthma exacerbation. Additionally as discussed heart enlargement was incidentally seen on x-ray and was being investigated further with an ultrasound of your heart. This has been obtained but not interpreted. Please follow-up with your primary doctor regarding echocardiogram results and consider further workup and management in case of any abnormalities. Discharge Attestations Time Spent in Discharge Care*: greater than 30 min Quality Metrics Clinical Quality Measures [ No reported AMI, CVA or VTE this stay] Coding Level of Care Code 25512 Total time (in minutes) for Discharge: 50 Diagnoses Influenza A J10.1 Acute hypoxic respiratory failure J96.01 Asthma exacerbation J45.901
--- NOTE | 2024-07-30 17:50 | PC.NURSE ---
This nurse was coming back up stairs from lunch when i met the patient coming off the elevator. Patient appeared to be very upset and frustrated. This nurse walked with the patient and attempted to verbally de-escalated the patient. It appeared as though someone from the med surg unit had called security to inform them of the situation. Security was at the main entrance (which was the way this nurse and patient were walking) and it appeared as though they had an idea as to what was going on. The patient was verbally aggressive towards the security officers asking them what they were going to do to her and telling them that i know my rights; are you going to put your hands on me, you can't put yours hands on me, don't talk to me like a dog, my mom is an RN and she works in medic[employer] she can shut this hospital down, etc. The security officers backed off and allowed this nurse to continue talking with the patient as we had a really good report. This nurse and the patient walked back to the patients room discussing the sequence of events and how the patient felt. This nurse apologized to the patient for the way she was made to feel and tried explaining that I don't feel like staff here would be purposefully mean to her and she said that she was talked to like a dog and expressed feelings strongly towards this manner. This nurse offered and apology and asked what could be done to make her feel better. The patient stated she didn't have an issue with this nurse and that she felt this nurse was nice and she had a good day with this nurse. The patient stated she just wanted to go home. Sandie, charge master specialist, notified Dr Booker of the ongoing situation and he made his way to the floor rather quickly. He attempted to explain the importance of the patient staying here and she made it clear she wanted to leave. She again mentioned her mom being an RN and said if she had any concerns she could just get ahold of her and she would take care of her. After their conversation the patient proceeded to leave the floor again. The patient came back to the floor approximately [address] Booker sent some prescriptions for the patient to [facility]'s pharmacy per the patients request. A script for a nebulizer was also given to the patient. This nurse also printed some education out for the patient and went over it with her as well informing her on returning to the ER/callling 911 if her symptoms worsen. All questions answered. Patient safely left the floor at 1648.
== END 2024-07-30 16:48 | disposition left against medical advice (07) | DRG 193 ==
LOC: ER 03:59 → MEDSURG 04:06
PROVIDERS: Admitting Provider Family Medicine; Emergency Provider Emergency Medicine; PCP Family Medicine; Visit Provider Internal Medicine
DX: J10.1 Influenza due to other identified influenza virus with other respiratory manifestations (principal); J96.01 Acute respiratory failure with hypoxia; Z68.41 Body mass index [BMI] 40.0-44.9, adult; J45.901 Unspecified asthma with (acute) exacerbation; E66.9 Obesity, unspecified; F17.210 Nicotine dependence, cigarettes, uncomplicated; I51.7 Cardiomegaly; Z79.891 Long term (current) use of opiate analgesic; Z88.0 Allergy status to penicillin; Z53.29 Procedure and treatment not carried out because of patient's decision for other reasons
CPT/HCPCS: 36415; 71045; 80051; 80061; 80069; 80307; 82330; 82805; 83036; 83880; 84145; 84702; 87040; 93306; 94640; 94664; 96374; 99285; J2919; J7613; J7626